=== PATIENT | female | born 2005 | race Caucasian/White ===

== ENCOUNTER 2025-02-15 09:22 | Emergency (ER) | payer OTHER ==
[~2025-02-15] VITALS: Ht 162.6 cm; Wt 63.0 kg
[2025-02-15 09:31] VITALS: TEMP 97.9
[2025-02-15 09:48] LABS: COVID AG,FIA SOURCE NASAL SWAB
[2025-02-15 10:33] LABS: SARS-COV2 (COVID) ANTIGEN,FIA Negative (Negative)
[2025-02-15 10:34] LABS: INFLUENZA TYPE A NEGATIVE FOR TYPE A (NEGATIVE); INFLUENZA TYPE B NEGATIVE FOR TYPE B (NEGATIVE)
[2025-02-15 11:18] LABS: RAPID GROUP A STREP PRELIM. NEGATIVE (NEGATIVE)
[2025-02-15] MEDS ORDERED: OXYM15SP63 NASAL (13:08)
[2025-02-15 13:09] VITALS: BP 108/56; PULSE 60; RESP 18; O2SAT 99
[2025-02-15] MEDS: OXYMETAZOLINE HCL 0.05% 15 ML NASAL SPRAY NASAL ONE (13:18)
== END 2025-02-15 14:00 | disposition home or self-care (01) ==
LOC: EMS 09:22
DX: J06.9 Acute upper respiratory infection, unspecified (principal); F12.90 Cannabis use, unspecified, uncomplicated; Z20.822 Contact with and (suspected) exposure to COVID-19
CPT/HCPCS: 87081; 87430; 87804; 99283